=== PATIENT | female | born 1960 | race Caucasian/White ===

== ENCOUNTER 2016-10-31 20:01 | Emergency (ER) | payer OTHER ==
[~2016-10-31] VITALS: Ht 165.1 cm; Wt 74.8 kg
--- NOTE | ~2016-10-31 | CR252 ---
[facility]. [facility] A Service of [facility] & [facility] RADIOLOGY TEXT RESULTS PATIENT: OLGA LIDIA LONGO LOCATION: SED : 62 UNIT #: [id number] AGE: [address]: Gladys Burns SEX: F ORDER DR: [id number] [address] [id number] E MR#: [id number] Acc #: [id number] NAME: OLGA LIDIA LONGO : 1960 SEX: F STUDY DATE/TIME: 10/31/2016 20:29 UNIT: SED ROOM: STUDY DESCRIPTION: CR Tibia and Fibula 2 Views Lt Attending Physician: Gladys Burns Pa-C Ordering Physician: Matthew Resendez Primary Care Physician: Juan Jose Armendariz M.D. MEDICAL IMAGING REPORT This report is preliminary unless electronic signature is present. EXAM Left tib-fib, 10/31/2016 INDICATION Bitten by a dog tonight. Multiple puncture wounds. Pain in the left tib-fib. TECHNIQUE 2 views COMPARISON No comparisons FINDINGS Please see the ankle series same date for further details. There is mild degenerative change in the left knee. No acute fracture or retained opaque foreign body. IMPRESSION Negative. Dictated by... Kevin Martínez M.D. THIS IS AN ELECTRONICALLY VERIFIED REPORT Kevin Martínez M.D. at 11/01/2016 2:16 PM CORINA/mile TD: 11/01/2016 09:14 JOB #: [id number] MEDICAL IMAGING REPORT Page 1 of 1
--- NOTE | ~2016-10-31 | CR20 ---
[facility]. [facility] A Service [facility] RADIOLOGY TEXT RESULTS PATIENT: OLGA LIDIA LONGO LOCATION: SED : 62 UNIT #: [id number] AGE: [address]: Gladys Burns SEX: F ORDER DR: [id number] [place] [id number] E MR#: [id number] Acc #: [id number] NAME: OLGA LIDIA LONGO : 1960 SEX: F STUDY DATE/TIME: 10/31/2016 20:29 UNIT: SED ROOM: STUDY DESCRIPTION: CR Ankle Min 3 Views Lt Attending Physician: Gladys Burns Pa-C Ordering Physician: Matthew Resendez Primary Care Physician: Juan Jose Armendariz M.D. MEDICAL IMAGING REPORT This report is preliminary unless electronic signature is present. EXAM Left ankle, 10/31/2016. INDICATION 56-year-old female with a puncture wound to the left lower leg and wounds to the left ankle. Bit by a dog tonight. Pain. TECHNIQUE Three views left ankle. COMPARISON No comparisons. FINDINGS Mild degenerative change in the tibiotalar joint. No acute fracture. Small calcaneal spur. Degenerative change of the talar dome. No retained opaque foreign body. IMPRESSION Degenerative change of the left ankle. No acute fracture or retained opaque foreign body. Dictated by... Kevin Martínez M.D. THIS IS AN ELECTRONICALLY VERIFIED REPORT Kevin Martínez M.D. at 11/01/2016 2:16 PM CORINA/yoli TD: 11/01/2016 09:18 [facility] A Service [facility] RADIOLOGY TEXT RESULTS PATIENT: OLGA LIDIA LONGO LOCATION: SED : 62 UNIT #: [id number] AGE: [address]: Gladys Burns SEX: F ORDER DR: SUGAR #: [id number] MEDICAL IMAGING REPORT Page 1 of 1
[~2016-10-31 20:01] MED LIST: ASPIRIN81 M1 PO; HYDROCHLOROTH12.5 MG PO; LEXAPRO PO; NORVASC10 MG PO; ZYRTEC10 M2 PO
[2016-10-31] MEDS ORDERED: CLARITIN10 M3 PO (20:07)
== END 2016-10-31 21:36 | disposition home or self-care (01) ==
LOC: SED 20:01
DX: S91.052A Open bite, left ankle, initial encounter (principal); S81.852A Open bite, left lower leg, initial encounter; Y99.8 Other external cause status; I10 Essential (primary) hypertension; Z23 Encounter for immunization; W54.0XXA Bitten by dog, initial encounter; Y92.009 Unspecified place in unspecified non-institutional (private) residence as the place of occurrence of the external cause
CPT/HCPCS: 73590; 73610; 90471; 90715; 99283